=== PATIENT | female | born 1950 | race Caucasian/White ===

== ENCOUNTER → 2017-11-29 | Outpatient (CLI) | payer OTHER ==
[~2017-11-29] MED LIST: CEFUROXIME250 MG PO; ESSENTIAL DAIL1 EACH PO
== END ==
LOC: M.CT 07:13
DX: R91.8 Other nonspecific abnormal finding of lung field (principal)

== ENCOUNTER 2021-05-29 22:37 | Emergency (ER) | payer MEDICARE ==
[~2021-05-29] VITALS: Ht 160 cm; Wt 88.5 kg
[2021-05-29] MEDS ORDERED: ARNICA (22:55)
[2021-05-30] MEDS ORDERED: XARELTO15 MG PO (00:14)
[2021-05-30] MEDS ORDERED: XARELTO20 MG PO (00:14)
[2021-05-30] MEDS ORDERED: NORCO5 PO (00:40)
[2021-05-30 01:26] VITALS: BP 167/85
== END 2021-05-30 01:26 | disposition home or self-care (01) ==
LOC: M.ERS 22:37
DX: S52.514A Nondisplaced fracture of right radial styloid process, initial encounter for closed fracture (principal); Z88.6 Allergy status to analgesic agent; W01.0XXA Fall on same level from slipping, tripping and stumbling without subsequent striking against object, initial encounter; Y93.89 Activity, other specified; Y92.89 Other specified places as the place of occurrence of the external cause; Y99.8 Other external cause status